=== PATIENT | male | born 1985 | race African-American/Black ===

== ENCOUNTER 2020-09-18 23:55 | Emergency (ER) | payer MEDICAID, SELFPAY ==
[2020-09-19 00:08] VITALS: BP 111/90; PULSE 106; RESP 18; TEMP 36.6; O2SAT 96; BMI 30.4
--- NOTE | 2020-09-19 00:40 | ED.WOUNDLAC ---
HPI - Wound/Laceration General Chief Complaint: Wound/Laceration Stated Complaint: finger lac Time Seen by Provider: 09/19/20 00:40 Source: patient Mode of arrival: ambulatory Limitations: no limitations History of Present Illness HPI narrative: Laceration to the mid dorsal right thumb from moving a refrigerator at home. Occurred just prior to arrival. Unsure of his tetanus vaccination status. Onset (ago): hour(s) Extremity Location: right: hand Place: home Patient tetanus UTD: No Context: accidental Associated symptoms: none Treatments prior to arrival: bandage Related Data Allergies Allergy/AdvReac Type Severity Reaction Status Date / Time No Known Allergies Allergy Verified 09/19/20 00:12 Review of Systems Review of Systems: Constitutional: No Weight loss, No Fever, No Chills, No Night Sweats, No Fatigue, No Malaise ENT/Mouth: No Hearing loss, No Ear Pain, No Nasal Congestion, No Sinus Pain, No Hoarseness, No sore throat, No Rhinorrhea, No Swallowing Difficulty Eyes: No Eye Pain, No Swelling, No Redness, No Foreign Body, No Discharge, No Vision Changes Cardiovascular: No Chest Pain, No SOB, No Dyspnea on Exertion, No Orthopnea, No Edema, No Palpitations Respiratory: No Cough, No Sputum, No Wheezing, No Smoke Exposure, No Dyspnea Musculoskeletal: No joint pain, No Myalgias, No Joint Swelling, laceration to right thumb Skin: No Skin Lesions, No rash Neuro: No Weakness, No Numbness, No Paresthesias, No Loss of Consciousness, No Dizziness, No Headache Psych: No Social Issues Heme/Lymph: No Bruising, No Bleeding,No Lymphadenopathy Endocrine: No Polyuria, No Polydipsia, No Temperature Intolerance Yes all other systems are reviewed and are negative [facility] Social History Social History Advance Directives: No Physical Exam Vital Signs: Vital Signs: Last Vital Signs Temp 97.8 F 09/19/20 00:08 Pulse 106 H 09/19/20 00:08 Resp 18 09/19/20 00:08 BP 111/90 H 09/19/20 00:08 Pulse Ox 96 09/19/20 00:08 Body Mass Index 30.4 Reviewed Const: General: cooperative and healthy appearing; No acute distress or intoxicated appearing Nutritional Appearance: average body habitus Orientation/consciousness: patient oriented x3 HENMT: Head: Yes normal to inspection Ears: hearing grossly normal bilaterally Resp: Effort & Inspection: normal respiratory effort Cardio: Jugular venous distension: no JVD Skin: General skin exam: no rashes or lesions noted Neuro: General: patient oriented x3 Extrem: General: Yes normal to inspection Hand/finger images: 1. 0.5 cm superficial appearing laceration to the mid thumb. Does not appear to fully penetrate through the adipose tissue. Has full range of motion. Good strength against resistance in both directions. Finger finger within normal limits. Procedures Laceration Laceration 1: Site: other (Right thumb) Side (If applicable): right Size (cm): 0.5 Description: linear Depth: simple, single layer Pre-repair: wound explored Skin layer closed with: nylon Size (cm): 5-0 Number of sutures: 1 Technique: simple, interrupted Discharge Plan Discharge Clinical Impression: Finger laceration, Tetanus Patient Disposition: Home, Self-Care Instructions: Finger Laceration (ED), Tetanus (ED) Additional Instructions: You suffered a superficial laceration to right thumb that required 1 superficial stitch. Keep site clean and dry This stat so states she needs to be removed in 7-10 days Monitor for any signs infection including redness, swelling, discharge or pain If any is present return to emergency room sooner This otherwise you are also given your tetanus vaccination which is good for next 10 years Return here in 7-10 days for stitch removal or your primary care doctor Thank you Referrals: Brody Kaiser [facility] [Emergency Midlevel Provider] - 1 week
[2020-09-19] MEDS: Diphth,Pertus(ACell),Tet Adult 0.5 ML SYRINGE IM (01:00)
== END 2020-09-19 01:09 | disposition home or self-care (01) ==
PROVIDERS: Emergency Provider Emergency Medicine; PCP Pediatrics
DX: S61.011A Laceration without foreign body of right thumb without damage to nail, initial encounter (principal); W45.8XXA Other foreign body or object entering through skin, initial encounter; Y93.89 Activity, other specified; Y92.009 Unspecified place in unspecified non-institutional (private) residence as the place of occurrence of the external cause; Y99.9 Unspecified external cause status
CPT/HCPCS: 12001; 90471; 90715; 99283; 99284

== ENCOUNTER 2020-09-27 22:53 | Emergency (ER) | payer MEDICAID, SELFPAY ==
--- NOTE | ~2020-09-27 | XR_ITS ---
EXAMINATION: XR FINGER, RIGHT CLINICAL INFORMATION: Rule out right thumb fracture. COMPARISON: None TECHNIQUE: PA, lateral, and oblique views of the right thumb. FINDINGS: No acute fracture or malalignment. Bone mineralization is normal. Joint spaces are well-preserved. Mild soft tissue swelling at the proximal phalanx. No radiodense foreign bodies. No subcutaneous gas. XR/XR finger RT min 2V IMPRESSION: Mild soft tissue swelling at the thumb. No acute fracture or malalignment.
[2020-09-27 22:57] VITALS: BP 114/83; PULSE 95; RESP 16; TEMP 36.5; BMI 29.5
--- NOTE | 2020-09-28 00:20 | ED_ITS ---
HPI - Medical Clearance General Chief complaint: Medical Clearance Stated complaint: Suture removal Source: patient Mode of arrival: ambulatory Limitations: no limitations History of Present Illness HPI Narrative: 34-year-old male presents for suture removal to the right thumb. Also complains of pain and swelling to the site. He does not report any redness, fevers, chills, nausea, vomiting, diarrhea, constipation, chest pain or pressure, palpitations, shortness of breath, shortness of breath on exertion, or any other concerning symptoms. Does have full range of motion to the extremity and full strength. Onset (ago): day(s) Associated Symptoms: denies other symptoms Related Information Previous Rx's Medication Instructions Recorded amoxicillin-pot clavulanate 1 tab PO Q12H 10 Days #20 tab 09/28/20 [Augmentin] Allergies Allergy/AdvReac Type Severity Reaction Status Date / Time No Known Allergies Allergy Verified 09/27/20 22:57 Review of Systems Review of Systems: Constitutional: No Fever, No Chills ENT/Mouth: No Ear Pain, No Hoarseness, No sore throat Eyes: No Eye Pain, No Swelling, No Redness, No Foreign Body Cardiovascular: No Chest Pain, No SOB Respiratory: No Cough, No Dyspnea Gastrointestinal: No Nausea, No Vomiting, No Diarrhea, No abdominal Pain Genitourinary: No Dysuria, No Hematuria Musculoskeletal: positive Swelling and pain to right thumb, No Myalgias Skin: positive suture to right thumb, No rash Neuro: No Weakness, No Numbness, No Paresthesias, No Loss of Consciousness, No Dizziness, No Headache Psych: No Anxiety/Panic, No Depression Heme/Lymph: no easy bruising, no Lymphadenopathy Endocrine: No Polyuria, No Polydipsia Yes all other systems are reviewed and are negative [facility] Past Medical History Attestation statement: The following information was validated with the patient. Source: old records reviewed Social History Social History Advance Directives: No Advance Directives Information Provided: No Physical Exam Vital Signs: Vital Signs: Last Vital Signs Temp 97.7 F 09/27/20 22:57 Pulse 95 09/27/20 22:57 Resp 16 09/27/20 22:57 BP 114/83 09/27/20 22:57 Body Mass Index 29.5 Appearance: Alert. Oriented X3. No acute distress. Eyes: Pupils equal, round and reactive to light. ENT: Pharynx normal. Neck: Normal inspection. Neck supple. CVS: Normal heart rate and rhythm. Pulses normal. Respiratory: No respiratory distress. Breath sounds normal. Abdomen: Soft and nontender. Skin: Skin warm and dry. Normal skin color. Normal skin turgor. laceration well approximated, healed, suture removed without difficulty. Extremities: No lower extremity edema. Swelling to the right thumb, full range of motion, brisk capillary refill and equal pulses to bilateral upper extremities. Neuro: No motor deficit. No sensory deficit. Course Course Course Narrative: 34-year-old male presents for suture removal. One suture removed from the right thumb. Area of swelling and tenderness noted, x-rays are negative for bone involvement. Patient does not have a primary care physician I will treat with Augmentin for 10 days based on patient's presentation. Wound is well-healed, well-approximated, full range of motion, full strength, no indication of tendon injury or deficit. Patient verbalizes understanding of and agrees to plan of care discharge home. MDM - Medical Clearance MDM Narrative Medical decision making narrative: suture removal Medical Records Attestation: I reviewed the patient's medical records. Imaging Data right thumb x-ray: Attestation: I personally reviewed and interpreted this imaging study as follows: Radiologist's impression: EXAMINATION: XR FINGER, RIGHT CLINICAL INFORMATION: Rule out right thumb fracture. COMPARISON: None TECHNIQUE: PA, lateral, and oblique views of the right thumb. FINDINGS: No acute fracture or malalignment. Bone mineralization is normal. Joint spaces are well-preserved. Mild soft tissue swelling at the proximal phalanx. No radiodense foreign bodies. No subcutaneous gas. XR/XR finger RT min 2V IMPRESSION: Mild soft tissue swelling at the thumb. No acute fracture or malalignment. Discharge Plan Discharge Clinical Impression: Visit for suture removal Patient Disposition: Home, Self-Care Instructions: Stitches Removal (ED) Additional Instructions: you were evaluated for suture removal to the right thumb. The right thumb was swollen, we did take an x-ray which was negative for bone involvement. It did show some soft tissue swelling. please take Augmentin twice a day for the next 10 days. Thank you for choosing this emergency department for evaluation. Please follow-up with primary care physician as needed. Return to the emergency department for any new, concerning, or worsening symptoms. Prescriptions: New amoxicillin-pot clavulanate [Augmentin] 875-125 mg tablet 1 tab PO Q12H 10 Days Qty: 20 RF: 0
[2020-09-28] MEDS: Amoxicillin/Potassium Clav 875 MG TABLET PO (01:11)
--- NOTE | 2020-09-28 01:28 | PC.NURSE ---
PT HAS GOO RANGE OF MOTION IN RIGHT THUMB, SLIGHT SWELLING. SKIN NOT HOT TO TOUCH, RED OR OPEN.
== END 2020-09-28 01:30 | disposition home or self-care (01) ==
PROVIDERS: Emergency Provider Emergency Medicine
DX: Z48.02 Encounter for removal of sutures (principal); M79.644 Pain in right finger(s); M79.89 Other specified soft tissue disorders
CPT/HCPCS: 73140; 99283